=== PATIENT | female | born 1935 | race Caucasian/White ===

== ENCOUNTER → 2017-10-19 | Outpatient (REF) | payer MEDICARE ==
[2017-10-19 11:30] LABS: BASO % 0.9 % (0.0-1.0); EOS # 0.1 10^3/uL (0.0-0.50); EOS % 2.2 % (0.0-3.0); HEMATOCRIT 36.4 % (36.0-47.0); IMMATURE GRANULOCYTE % 0.6 % (0-3.0); LYMPH # 1.4 10^3/uL (1.5-4.5); LYMPH % 29.1 % (24.0-44.0); MEAN CORPUSCULAR HEMOGLOBIN 31.3 pg (27.0-33.0); MEAN CORPUSCULAR VOLUME 94.8 fl (80.0-96.0); MONO # 0.5 10^3/uL (0.0-0.8); MONO % 10.3 % (0.0-5.0); NEUTROPHILS # 2.6 10^3/uL (1.8-7.7); NEUTROPHILS % 56.9 % (36.0-66.0); PLATELET COUNT, AUTOMATED 387 10^3/uL (150-450); RED BLOOD COUNT 3.84 10^6/uL (4.00-5.40); RED CELL DISTRIBUTION WIDTH 13.4 % (11.5-14.5); WHITE BLOOD COUNT 4.6 10^3/uL (4.0-10.0)
[2017-10-19 12:03] LABS: ALBUMIN 3.3 GM/DL (3.2-5.2); ALBUMIN/GLOBULIN RATIO 1.06 (1.00-1.93); ALKALINE PHOSPHATASE 73 U/L (45-117); ALT/SGPT 25 U/L (12-78); ANION GAP 7 MEQ/L (8-16); AST/SGOT 33 U/L (7-37); BILIRUBIN,TOTAL 0.3 MG/DL (0.2-1.0); BLOOD UREA NITROGEN 16 MG/DL (7-18); CARBON DIOXIDE LEVEL 28 MEQ/L (21-32); CHLORIDE LEVEL 109 MEQ/L (98-107); CHOLESTEROL LEVEL 237 MG/DL (<200); CHOLESTEROL RISK RATIO 4.157 (<5); CREATININE FOR GFR 0.94 MG/DL (0.55-1.30); FREE T4 0.94 NG/DL (0.76-1.46); GLOMERULAR FILTRATION RATE > 60.0 (>32); GLUCOSE, FASTING 90 MG/DL (70-100); HDL CHOLESTEROL 57 MG/DL (>40); LDL CHOLESTEROL 156.4 MG/DL (<100); NON-HDL-C 180 MG/DL; POTASSIUM SERUM 4.4 MEQ/L (3.5-5.1); SODIUM LEVEL 144 MEQ/L (136-145); TOTAL PROTEIN 6.4 GM/DL (6.4-8.2); TRIGLYCERIDES LEVEL 118 MG/DL (<150)
[2017-10-19 12:17] LABS: MALB URINE SIEMENS 20.6 MG/L; MAU/CREAT RATIO 13.3 MCG/MG (0.0-30.0)
== END ==
LOC: M SFHCCLAY 08:01
DX: I10 Essential (primary) hypertension (principal)
CPT/HCPCS: 84443

== ENCOUNTER → 2018-02-05 | Outpatient (REF) | payer MEDICARE | LOC: M SFHCCLAY 17:16 | DX: R30.0 Dysuria (principal) | CPT/HCPCS: 87086 ==

== ENCOUNTER → 2018-06-08 | Outpatient (REF) | payer MEDICARE ==
[2018-06-08 17:00] LABS: HEMATOCRIT 39.2 % (36.0-47.0); HEMOGLOBIN 12.4 g/dl (12.0-15.5); MEAN CORPUSCULAR HEMOGLOBIN 31.5 pg (27.0-33.0); MEAN CORPUSCULAR HGB CONC 31.6 g/dl (32.0-36.5); MEAN CORPUSCULAR VOLUME 99.5 fl (80.0-96.0); PLATELET COUNT, AUTOMATED 207 10^3/uL (150-450); RED BLOOD COUNT 3.94 10^6/uL (4.00-5.40); RED CELL DISTRIBUTION WIDTH 13.3 % (11.5-14.5); WHITE BLOOD COUNT 4.7 10^3/uL (4.0-10.0)
[2018-06-08 17:01] LABS: ALBUMIN 3.7 GM/DL (3.2-5.2); ALBUMIN/GLOBULIN RATIO 1.37 (1.00-1.93); ALKALINE PHOSPHATASE 68 U/L (45-117); ALT/SGPT 23 U/L (12-78); ANION GAP 6 MEQ/L (8-16); AST/SGOT 20 U/L (7-37); BILIRUBIN,TOTAL 0.3 MG/DL (0.2-1.0); BLOOD UREA NITROGEN 15 MG/DL (7-18); CALCIUM LEVEL 9.1 MG/DL (8.8-10.2); CARBON DIOXIDE LEVEL 29 MEQ/L (21-32); CHLORIDE LEVEL 109 MEQ/L (98-107); CREATININE FOR GFR 0.99 MG/DL (0.55-1.30); GLOMERULAR FILTRATION RATE 56.9 (>32); GLUCOSE, FASTING 95 MG/DL (70-100); POTASSIUM SERUM 4.3 MEQ/L (3.5-5.1); SODIUM LEVEL 144 MEQ/L (136-145); TOTAL PROTEIN 6.4 GM/DL (6.4-8.2)
== END ==
LOC: M LABDRAWC 16:09
DX: C43.71 Malignant melanoma of right lower limb, including hip (principal)
CPT/HCPCS: 80053

== ENCOUNTER → 2018-06-12 | Outpatient (CLI) | payer MEDICARE | LOC: M PLARAD 15:12 | DX: C43.71 Malignant melanoma of right lower limb, including hip (principal); C77.5 Secondary and unspecified malignant neoplasm of intrapelvic lymph nodes | CPT/HCPCS: 78816 ==

== ENCOUNTER → 2018-06-14 | Outpatient (CLI) | payer MEDICARE ==
[~2018-06-14] MED LIST: PROHANCE 279.3MG/ML 5ML VIAL (A9576) As Ordered
== END ==
LOC: M RAD 09:22
DX: C43.71 Malignant melanoma of right lower limb, including hip (principal); I67.82 Cerebral ischemia
CPT/HCPCS: A9576

== ENCOUNTER → 2018-07-19 | Outpatient (REF) | payer MEDICARE ==
[2018-07-19 17:31] LABS: BASO % 0.8 % (0.0-1.0); EOS # 0.1 10^3/uL (0.0-0.50); EOS % 1.4 % (0.0-3.0); HEMATOCRIT 39.3 % (36.0-47.0); HEMOGLOBIN 12.9 g/dl (12.0-15.5); IMMATURE GRANULOCYTE % 0.2 % (0-3.0); LYMPH # 1.5 10^3/uL (1.5-4.5); LYMPH % 28.9 % (24.0-44.0); MEAN CORPUSCULAR HEMOGLOBIN 31.5 pg (27.0-33.0); MEAN CORPUSCULAR HGB CONC 32.8 g/dl (32.0-36.5); MEAN CORPUSCULAR VOLUME 96.1 fl (80.0-96.0); MONO # 0.4 10^3/uL (0.0-0.8); MONO % 7.2 % (0.0-5.0); NEUTROPHILS # 3.2 10^3/uL (1.8-7.7); NEUTROPHILS % 61.5 % (36.0-66.0); PLATELET COUNT, AUTOMATED 219 10^3/uL (150-450); RED BLOOD COUNT 4.09 10^6/uL (4.00-5.40); RED CELL DISTRIBUTION WIDTH 12.9 % (11.5-14.5); WHITE BLOOD COUNT 5.2 10^3/uL (4.0-10.0)
[2018-07-19 17:32] LABS: ALBUMIN 3.6 GM/DL (3.2-5.2); ALBUMIN/GLOBULIN RATIO 1.33 (1.00-1.93); ALKALINE PHOSPHATASE 67 U/L (45-117); ALT/SGPT 26 U/L (12-78); ANION GAP 7 MEQ/L (8-16); AST/SGOT 23 U/L (7-37); BILIRUBIN,TOTAL 0.4 MG/DL (0.2-1.0); BLOOD UREA NITROGEN 16 MG/DL (7-18); CARBON DIOXIDE LEVEL 28 MEQ/L (21-32); CHLORIDE LEVEL 109 MEQ/L (98-107); CREATININE FOR GFR 0.89 MG/DL (0.55-1.30); GLOMERULAR FILTRATION RATE > 60.0 (>32); GLUCOSE, FASTING 87 MG/DL (70-100); POTASSIUM SERUM 4.5 MEQ/L (3.5-5.1); SODIUM LEVEL 144 MEQ/L (136-145); TOTAL PROTEIN 6.3 GM/DL (6.4-8.2)
== END ==
LOC: M SFHCCLAY 09:48
DX: I10 Essential (primary) hypertension (principal)
CPT/HCPCS: 80053

== ENCOUNTER → 2018-08-01 | Outpatient (CLI) | payer MEDICARE | LOC: M CLY 11:29 | DX: R14.0 Abdominal distension (gaseous) (principal) | CPT/HCPCS: 74021 ==

== ENCOUNTER → 2018-08-01 | Outpatient (REF) | payer MEDICARE | LOC: M SFHCCLAY 11:22 | DX: N89.8 Other specified noninflammatory disorders of vagina (principal) | CPT/HCPCS: 87070; 87077; 87186 ==

== ENCOUNTER → 2018-08-02 | Outpatient (REF) | payer MEDICARE ==
[2018-08-06 00:10] LABS: H PYLORI STOOL ANTIGEN Negative (Negative)
== END ==
LOC: M SFHCCLAY 16:04
DX: R14.0 Abdominal distension (gaseous) (principal)
CPT/HCPCS: 87338

== ENCOUNTER → 2018-08-15 | Outpatient (REF) | payer MEDICARE ==
[2018-08-15 17:59] LABS: ALBUMIN 3.6 GM/DL (3.2-5.2); ALBUMIN/GLOBULIN RATIO 1.29 (1.00-1.93); ALKALINE PHOSPHATASE 68 U/L (45-117); ALT/SGPT 20 U/L (12-78); ANION GAP 9 MEQ/L (8-16); AST/SGOT 24 U/L (7-37); BILIRUBIN,TOTAL 0.4 MG/DL (0.2-1.0); BLOOD UREA NITROGEN 18 MG/DL (7-18); CALCIUM LEVEL 8.7 MG/DL (8.8-10.2); CARBON DIOXIDE LEVEL 26 MEQ/L (21-32); CHLORIDE LEVEL 107 MEQ/L (98-107); CREATININE FOR GFR 0.91 MG/DL (0.55-1.30); GLOMERULAR FILTRATION RATE > 60.0 (>32); GLUCOSE, FASTING 72 MG/DL (70-100); POTASSIUM SERUM 4.4 MEQ/L (3.5-5.1); SODIUM LEVEL 142 MEQ/L (136-145); TOTAL PROTEIN 6.4 GM/DL (6.4-8.2)
== END ==
LOC: M SFHCCLAY 13:19
DX: R14.0 Abdominal distension (gaseous) (principal)
CPT/HCPCS: 80053

== ENCOUNTER → 2018-08-22 | Outpatient (CLI) | payer MEDICARE ==
[~2018-08-22] MED LIST changes: +GASTROGRAFIN SOLUTION 30ML (Q9963) As Ordered ONE; +ISOVUE-370 76% 100ML VIAL (Q9967) As Ordered ONE; -PROHANCE 279.3MG/ML 5ML VIAL (A9576) As Ordered
--- NOTE | 2018-08-22 20:25 | REP ---
HISTORY: Abdominal bloating. COMPARISON: None. CONTRAST: 100 mL [id number] The lung bases are essentially clear. There are innumerable low density lesions scattered throughout the hepatic parenchyma, only one shows contrast enhancement and seen in a peripheral nodular fashion and with delayed imaging showing complete contrast filling of that lesion which is consistent with a benign hemangioma. It measures 1 cm. The other lesions are consistent with simple hepatic cysts. The largest is in the medial segment of the left lobe of the liver and measures 2.2 cm. The patient is status post cholecystectomy. The spleen, pancreas, adrenal glands and kidneys are within normal limits. The abdominal aorta and periaortic regions are within normal limits. The bowel loops and their mesenteries are within normal limits. There is no free fluid or free air. There is no evidence of an intraabdominal mass or adenopathy. There is a large amount of content in the colon. CT PELVIS: There is a large amount of content in the colon. There is sigmoid colon diverticulosis. There is no free fluid or free air. There is no mass or adenopathy. Bone window technique throughout the examination shows the osseous structures to be within normal limits for the patient's age of 83 years. IMPRESSION: 1. Multiple simple hepatic cysts. 2. Single benign hepatic hemangioma. 3. Content filled colon. Correlate clinically. 4. Sigmoid colon diverticulosis with some evidence to suggest chronic diverticular scarring. Consider followup with colonoscopy. 5. Other findings as described above. Electronically Signed by Jamin Sifuentes DO 08/23/2018 03:49 P
== END ==
LOC: M RAD 14:21
PROVIDERS: ATTEND Nurse Practitioner Family
DX: R14.0 Abdominal distension (gaseous) (principal); K76.89 Other specified diseases of liver
CPT/HCPCS: 74177; Q9963; Q9967

== ENCOUNTER 2018-09-26 09:19 | Day surgery (SDC) | payer MEDICARE ==
[~2018-09-26] VITALS: Ht 154.9 cm; Wt 47.6 kg
[~2018-09-26 09:19] MED LIST changes: +ALOE500C PO; +AMBI5TAB PO; +BIOT10008 PO; +COQ-400C PO; -GASTROGRAFIN SOLUTION 30ML (Q9963) As Ordered ONE; +HYDR-3713 PO; -ISOVUE-370 76% 100ML VIAL (Q9967) As Ordered ONE; +LEXA1TAB PO; +LIDOCAINE 2% INJ 100 MG/5 ML SDV (FOR ANES.) As Ordered ONE; +NS 1,000 ML IV ONE; +OCUVTAB PO; +PROPOFOL 200 MG/20 ML VIAL As Ordered ONE; +VITA100067 PO
--- NOTE | 2018-09-26 11:12 | ROOR ---
Patient Name: Tiana Posey Procedure Date: 09/26/2018 10:41 AM Date of : 1935 Age: 83 Room: [facility] Gender: Female Note Status: Finalized Procedure: Colonoscopy Indications: Abnormal CT of the GI tract Providers: DO Gillian Draper MD: Caitlin Oro NP Requesting Provider: Medicines: Propofol per Anesthesia Complications: No immediate complications. Procedure: Pre-Anesthesia Assessment: - Prior to the procedure, a History and Physical was performed, and patient medications and allergies were reviewed. The patient is competent. The risks and benefits of the procedure and the sedation options and risks were discussed with the patient. All questions were answered and informed consent was obtained. Patient identification and proposed procedure were verified by the physician, the nurse, the anesthesiologist and the textile science technician in the endoscopy suite. Mental Status Examination: alert and oriented. Airway Examination: normal oropharyngeal airway and neck mobility. Respiratory Examination: clear to auscultation. CV Examination: normal. Prophylactic Antibiotics: The patient does not require prophylactic antibiotics. Prior Anticoagulants: The patient has taken no previous anticoagulant or antiplatelet agents. ASA Grade Assessment: II - A patient with mild systemic disease. After reviewing the risks and benefits, the patient was deemed in satisfactory condition to undergo the procedure. The anesthesia plan was to use monitored anesthesia care (MAC). Immediately prior to administration of medications, the patient was re-assessed for adequacy to receive sedatives. The heart rate, respiratory rate, oxygen saturations, blood pressure, adequacy of pulmonary ventilation, and response to care were monitored throughout the procedure. The physical status of the patient was re-assessed after the procedure. The Colonoscope was introduced through the anus and advanced to the terminal ileum, with identification of the appendiceal orifice and IC valve. The colonoscopy was performed without difficulty. The patient tolerated the procedure well. Findings: The perianal exam findings include non-thrombosed internal hemorrhoids and internal hemorrhoids (Grade I). The exam was otherwise without abnormality on direct and retroflexion views. Two hyperplastic polyps were found in the descending colon. The polyps were 2 to 5 mm in size. These polyps were removed with a jumbo cold forceps. Resection and retrieval were complete. Impression: - One less than 5 mm polyp in the descending colon, removed with a jumbo cold forceps. Resected and retrieved. - Non-thrombosed internal hemorrhoids and internal hemorrhoids (Grade I) found on perianal exam. - The examination was otherwise normal on direct and retroflexion views. Recommendation: - Patient has a contact number available for emergencies. The signs and symptoms of potential delayed complications were discussed with the patient. Return to normal activities tomorrow. Written discharge instructions were provided to the patient. - Repeat colonoscopy in 5-10 years for surveillance based on pathology results. - Return to my office PRN. - Telephone my office for pathology results in 1 week. Shivam Greco DO 09/26/2018 11:12:27 AM This report has been signed electronically. Number of Addenda: 0 Note Initiated On: 09/26/2018 10:41 AM Estimated Blood Loss: Estimated blood loss: none.
[2018-09-26 11:35] VITALS: BP 150/66
== END 2018-09-26 11:38 | disposition home or self-care (01) ==
LOC: M OPP 09:19
PROVIDERS: ATTEND Surgery
DX: R93.3 Abnormal findings on diagnostic imaging of other parts of digestive tract (principal); D12.4 Benign neoplasm of descending colon; K64.0 First degree hemorrhoids; M19.90 Unspecified osteoarthritis, unspecified site; Z85.820 Personal history of malignant melanoma of skin; E78.00 Pure hypercholesterolemia, unspecified; Z78.0 Asymptomatic menopausal state; F41.9 Anxiety disorder, unspecified; Z79.899 Other long term (current) drug therapy; Z87.891 Personal history of nicotine dependence

== ENCOUNTER 2018-12-21 21:03 | Observation (INO) | payer MEDICARE ==
[~2018-12-21] VITALS: Ht 154.9 cm; Wt 54.7 kg
[~2018-12-21 21:03] MED LIST changes: -LIDOCAINE 2% INJ 100 MG/5 ML SDV (FOR ANES.) As Ordered ONE; -NS 1,000 ML IV ONE; -PROPOFOL 200 MG/20 ML VIAL As Ordered ONE
[2018-12-22] VITALS: BP 184/68
[2018-12-22] MEDS: NS 1,000 ML IV SCH ×2 (02:00→15:20)
[2018-12-22 02:30] VITALS: BP 176/64
[2018-12-22 03:30] VITALS: BP 172/66
--- NOTE | 2018-12-22 04:19 | HPEPDOC ---
General Date of Admission Dec 21, 2018 at 23:59 Primary Care Physician: Caitlin Oro Chief Complaint The patient is a 83-year-old female admitted with a reason for visit of Overdose. History of Present Illness 83-year-old female with past medical history of anxiety/depression was transferred from a local ER for admission to the hospitalist service for monitoring after an overdose. The patient apparently got into a dispute with her daughter yesterday evening. Thereafter, she states that she became increasingly depressed and took an unknown number of Ambien 5mg pills (later approximated to be 10-15 pills after a subsequent count). According to the patient's daughter, she found her mother laying on the floor the following morning and drowsy appearing. The patient stated that she was really upset about the situation from the previous night and, "wanted to end it all." The patient has been transferred to [facility] for telemetry monitoring as she was apparently noted to have a 10 second episode of bradycardia with a heart rate in the 40s while in the other facility. She remained asymptomatic and without any acute complaints during the period. Poison control has been contacted and has otherwise medically cleared the patient. At this time, the patient denies any complaints of fevers, chills, chest pain, palpitations, shortness of breath, abdominal pain, or any nausea/vomiting/diarrhea. The patient will be admitted under the service of the [facility]. She will need a psychiatric evaluation in the a.m. Home Medications Scheduled (Aloe Vera) 500 Mg Cap, Unknown Dose PO BID, (Reported) Biotin (Vitamin H) (Biotin) 1,000 Mcg Tab, 1,000 MCG PO DAILYPRN, (Reported) Escitalopram Oxalate (Lexapro) 10 Mg Tab, 10 MG PO DAILY, (Reported) Ubidecarenone (Co Q-10) 400 Mg Cap, Unknown Dose PO DAILY, (Reported) Vitamin D (Vitamin D) 1,000 Unit Cap, 1,000 UNIT PO DAILY, (Reported) Vits A,C,E/Lutein/Minerals (Ocuvite with Lutein Tablet) 1 Tab Tab, 2 TAB PO DAILY, (Reported) Scheduled PRN Hydrocodone/Acetaminophen (Hydrocodone-Acetamin 5-325 mg) 1 Tab Tab, 1 TAB PO Q6H PRN for PAIN, (Reported) MDD 4 Zolpidem Tartrate (Ambien) 5 Mg Tab, 5 MG PO QHSP PRN for SLEEP, (Reported) Allergies Coded Allergies: No Known Allergies (Unverified , 09/18/18) Past Medical History Medical History As noted in HPI. Surgical History Hysterectomy, bilateral salpingo-oophorectomy, cholecystectomy, cyst removed from breast bilaterally, right ankle surgery Social History * Smoker: Denies Alcohol: Denies Drugs: denies Review of Systems Other systems 10 point review of systems negative unless otherwise specified in HPI. Physical Examination General Exam: Positive: Alert, Cooperative, No Acute Distress ENT Exam: Positive: Atraumatic, Mucous membr. moist/pink Neck Exam: Negative: JVD Chest Exam: Positive: Clear to auscultation, Normal air movement Heart Exam: Positive: Rate Normal, Normal S1, Normal S2 Abdomen Exam: Positive: Soft; Negative: Tenderness Extremity Exam: Negative: Tenderness, Swelling Psych Exam: Positive: Oriented x 3 Vital Signs Vital Signs Date Time Temp Pulse Resp B/P (MAP) Pulse Ox O2 Delivery O2 Flow Rate FiO2 12/22/18 03:30 172/66 (101) 12/22/18 00:00 97.8 65 16 95 Plan / VTE VTE Prophylaxis Ordered?: Yes Plan Plan Overdose/Suicide Attempt Patient took 10-15 pills of Ambien 5mg on the evening of 12/20/18 Currently w/o any acute complaints Poison control has cleared the patient We will cont supportive treatment at this time Patient will need psych eval this morning Episode of Sinus Bradycardia We do not have the Telemetry stip here of the event, but apparently the patient was asymptomatic She is not on any rate controlling agents Monitor on Telemetry Hx of Depression She will need a psych eval as noted above DVT Prophylaxis LoveFREEDOM Kapadia MD Dec 22, 2018 04:19
[2018-12-22] MEDS ORDERED: D 101000 PO (04:27)
[2018-12-22] MEDS ORDERED: VITA-183 PO (04:27)
[2018-12-22] MEDS ORDERED: MECL1CHW PO (04:32)
[2018-12-22] MEDS ORDERED: MECL-86 PO (04:32)
[2018-12-22] MEDS ORDERED: DICY20TA11 PO (04:34)
[2018-12-22 06:00] VITALS: BP 155/74
[2018-12-22 06:41] LABS: HEMATOCRIT 34.6 % (36.0-47.0); HEMOGLOBIN 11.5 g/dl (12.0-15.5); MEAN CORPUSCULAR HEMOGLOBIN 31.4 pg (27.0-33.0); MEAN CORPUSCULAR HGB CONC 33.2 g/dl (32.0-36.5); MEAN CORPUSCULAR VOLUME 94.5 fl (80.0-96.0); PLATELET COUNT, AUTOMATED 168 10^3/uL (150-450); RED BLOOD COUNT 3.66 10^6/uL (4.00-5.40); WHITE BLOOD COUNT 5.4 10^3/uL (4.0-10.0)
[2018-12-22 07:24] LABS: ALBUMIN 3.1 GM/DL (3.2-5.2); ALT/SGPT 22 U/L (12-78); BILIRUBIN,TOTAL 0.4 MG/DL (0.2-1.0); BLOOD UREA NITROGEN 14 MG/DL (7-18); CALCIUM LEVEL 8.1 MG/DL (8.8-10.2); CARBON DIOXIDE LEVEL 26 MEQ/L (21-32); CHLORIDE LEVEL 113 MEQ/L (98-107); CPK CREATINE PHOSPHOKINASE 1126 U/L (26-192); CREATININE FOR GFR 0.67 MG/DL (0.55-1.30); GLOMERULAR FILTRATION RATE > 60.0 (>32); GLUCOSE, FASTING 92 MG/DL (70-100); POTASSIUM SERUM 3.6 MEQ/L (3.5-5.1); SODIUM LEVEL 145 MEQ/L (136-145); TOTAL PROTEIN 5.6 GM/DL (6.4-8.2)
[2018-12-22] MEDS: ENOXAPARIN 30 MG/0.3 ML SYR (J1650) SC SCH (09:38)
[2018-12-22 19:55] VITALS: BP 198/80
[2018-12-22] MEDS ORDERED: FUROSEMIDE 20 MG TAB PO ONE (20:30)
[2018-12-22] MEDS ORDERED: ACETAMINOPHEN TAB 650MG DOSE (2X325MG) PO PRN (21:15)
[2018-12-22 21:45] VITALS: BP 164/80
[2018-12-23 06:00] VITALS: BP 135/75
[2018-12-23 06:31] LABS: BASO % 0.6 % (0.0-1.0); EOS # 0.2 10^3/uL (0.0-0.50); EOS % 2.8 % (0.0-3.0); HEMATOCRIT 35.9 % (36.0-47.0); HEMOGLOBIN 11.8 g/dl (12.0-15.5); LYMPH # 1.6 10^3/uL (1.5-4.5); LYMPH % 29.8 % (24.0-44.0); MEAN CORPUSCULAR HEMOGLOBIN 30.8 pg (27.0-33.0); MEAN CORPUSCULAR HGB CONC 32.9 g/dl (32.0-36.5); MEAN CORPUSCULAR VOLUME 93.7 fl (80.0-96.0); MONO # 0.5 10^3/uL (0.0-0.8); MONO % 9.8 % (0.0-5.0); NEUTROPHILS # 3.1 10^3/uL (1.8-7.7); NEUTROPHILS % 56.8 % (36.0-66.0); PLATELET COUNT, AUTOMATED 186 10^3/uL (150-450); RED BLOOD COUNT 3.83 10^6/uL (4.00-5.40); WHITE BLOOD COUNT 5.4 10^3/uL (4.0-10.0)
[2018-12-23 06:49] LABS: ALBUMIN 3.3 GM/DL (3.2-5.2); ALT/SGPT 23 U/L (12-78); BILIRUBIN,TOTAL 0.5 MG/DL (0.2-1.0); BLOOD UREA NITROGEN 17 MG/DL (7-18); CALCIUM LEVEL 8.5 MG/DL (8.8-10.2); CARBON DIOXIDE LEVEL 27 MEQ/L (21-32); CHLORIDE LEVEL 109 MEQ/L (98-107); CPK CREATINE PHOSPHOKINASE 723 U/L (26-192); CREATININE FOR GFR 0.81 MG/DL (0.55-1.30); GLOMERULAR FILTRATION RATE > 60.0 (>32); GLUCOSE, FASTING 94 MG/DL (70-100); POTASSIUM SERUM 3.4 MEQ/L (3.5-5.1); SODIUM LEVEL 144 MEQ/L (136-145); TOTAL PROTEIN 5.9 GM/DL (6.4-8.2)
[2018-12-23] MEDS: ENOXAPARIN 30 MG/0.3 ML SYR (J1650) SC SCH (08:01)
--- NOTE | 2018-12-23 12:27 | IPN ---
DATE: 12/22/2018 Mrs. Posey is an 83-year-old woman admitted to our service last night. For some reason, her chart was not flagged with the fact that she is supposed to be on our service; hence, I did not see her during the day. I was called at dinnertime at home after I made rounds with the information that she was here and that her daughter was seeking some answers to some medical questions regarding her mother's condition. She went to [facility] yesterday morning. She apparently was found on the floor somewhat lethargic. She admitted to taking several doses, unclear how many, of Ambien as well as 1/2 tablet of hydrocodone with acetaminophen. At [facility], she evidenced an elevated CPK, no doubt due to some mild rhabdomyolysis. She was also observed to have had a pulse rate at one time in the 30s with a sinus bradycardia that was asymptomatic. Given the need for psychiatric assessment and cardiac monitoring, [facility] felt it best that she be transferred here and she came here last evening and was admitted by the hospitalist. She has been getting intravenous (IV) normal saline. She apparently has been reasonably awake all day. Poison Control was consulted yesterday at [facility], and they called back today and with the information they were given they felt that they no longer had to be involved. The patient herself admits to being under a certain amount of stress. She lives at home with her who apparently is not in good health at this time. He has issues with a deteriorating hip as well as some cardiac problems. She needs help from her daughter and her son-in-law in order to keep an eye on him. She says that she has felt frustrated this week regarding her life situation. [facility] also indicated to us that she had had an argument with her daughter and that could not be confirmed at this time. The patient stated yesterday to her daughter that she took the pills because she wanted to end it all. She indicates today that she is not going to do that again, and I think has been given the opportunity within the last 24 hours to express some of her worries and frustrations. At this time, she is not having any headache, no blurry vision. No cough, no shortness of breath. No chest pains or palpitations. She has been getting normal saline at 75 mL an hour, apparently she got 2-1/2 liters of IV saline before she came to our facility. She is getting Lovenox 30 mg subcu daily. At home, she was getting citalopram 10 mg daily. She periodically took Ambien for sleep 5 mg, took hydrocodone 5/325 half to one tablet periodically for low back pain. She has other medications that she does not take any more including meclizine and dicyclomine. ON EXAMINATION: Temperature at 1400 hours was 98.2, pulse was 80, respirations 18, oxygen (O2) saturation was 98% on room air. This morning, her blood pressure was 155/74, overnight it had been in the 170s and 180s. This evening, her blood pressure was 198/80. She is alert, oriented, pleasant and cooperative, not at all in any distress. She does not appear sad, withdrawn, anxious or cognitively impaired. She seems quite comfortable in the presence of her daughter. Her speech is clear. No facial weakness. No neck masses, tenderness or adenopathy. No carotid bruits. Her lungs are clear. Heart: Has a regular rhythm without any murmur, click or gallop. Abdomen is soft and nontender without any masses or organomegaly. Bowel sounds are active. There is no edema. We reviewed her labs and x-rays from [facility] this evening. This morning, her labs here showed that her hemoglobin was 11.5, WBCs 5400, platelets 168,000. Her BUN was 14, creatinine 0.67, sodium 145, potassium 3.6, glucose was 92, calcium 8.1, AST minimally elevated at 38, ALT normal at 22, alkaline phosphatase normal at 58. CPK was 1126, which is lower than the readings at [facility] yesterday. Her night monitor showed regular sinus rhythm without any bradycardia. ASSESSMENT: 83-year-old white female with Ambien overdose and modest rhabdomyolysis. Condition seems to be improving. PLAN: Since we were not aware of her presence in the hospital this morning, we lost our opportunity to discuss her case with the psychiatrist. Will do that at this time and have the psychiatrist see her tomorrow to see whether they recommend either continued hospitalization or transfer to mental health. I think that as long as she is not allowed access to psychotropic medications, she should be fine. She did sign her own Medical Orders for Life-Sustaining Treatment (MOLST) form last night. She did not want to be intubated, did not want to have feeding tube if it ever came to that. More than 45 minutes was spent with the patient and her family on the floor and reviewing records. JODY
[2018-12-23] MEDS: POTASSIUM CHLORIDE 10 MEQ SR TABLET PO SCH ×2 (13:28→20:29)
[2018-12-23 14:00] VITALS: BP 152/64
[2018-12-23 22:00] VITALS: BP 157/72
[2018-12-24 06:00] VITALS: BP 127/60
[2018-12-24] MEDS: ENOXAPARIN 30 MG/0.3 ML SYR (J1650) SC SCH (08:43)
[2018-12-24] MEDS: POTASSIUM CHLORIDE 10 MEQ SR TABLET PO SCH (08:43)
--- NOTE | 2018-12-24 08:43 | IPN ---
DATE OF VISIT: 12/23/2018 The patient is seen today on 4 pav[address]. She looks quite comfortable. She is alert and jovial. Her daughter is present as well as a friend and a sitter. She is not looking down or depressed or complaining of any suicidal ideation. She has no physical complaints. She was up a lot in the night urinating because we had given her a diuretic last night to lower blood pressure, which we felt was elevated due to the intravenous (IV) saline that she receives. She is not having any issues with her ambulation. Denies any back pain. She remains on the Lovenox. No longer on the IV fluids. We have not restarted her antidepressant medicine only because we thought perhaps that the psychiatrist might want her on a different medication other than the Lexapro that she was on. On examination, temperature is 97.3, pulse 78 regular, respirations 18, blood pressure 135/75, oxygen saturation on room air is 97%. She is alert, pleasant, cooperative, not in any distress, oriented to time place and person. She has mild assymmetry of her mouth, which is not a new finding. No neck masses or tenderness. Her lungs are clear. Heart has a regular rhythm. I am not hearing any murmur, click or gallop. Abdomen soft and nontender. There is no tremor. Facilities Coordinator are normal. Her hemoglobin is 11.8. WBC is 5400. Sodium is 144. Potassium dropped to 3.4. Liver functions are normal. CPK is down to 723. ASSESSMENT: 1. Status post Ambien overdose, seems to be resolved. 2. Rhabdomyolysis, stable. 3. Adult adjustment disorder. 4. History of depression. 5. Hypokalemia. PLAN: The patient's potassium is low today, so we will supplement her with oral potassium. I did speak with the psychiatrist with her last night and he said that he would try to see her today. If he is good with her going home, she could be discharged. If he feels that she requires some hospitalization on the mental health unit, he will indicate that as well. I suspect that they will recommend the former. JODY
[2018-12-24 11:38] LABS: BLOOD UREA NITROGEN 26 MG/DL (7-18); CARBON DIOXIDE LEVEL 25 MEQ/L (21-32); CHLORIDE LEVEL 112 MEQ/L (98-107); GLOMERULAR FILTRATION RATE > 60.0 (>32); GLUCOSE, FASTING 85 MG/DL (70-100); POTASSIUM SERUM 4.5 MEQ/L (3.5-5.1); SODIUM LEVEL 143 MEQ/L (136-145)
--- NOTE | 2018-12-24 11:58 | MHCR ---
DATE OF CONSULTATION: 12/23/2018 CHIEF COMPLAINT: She took an overdose. SUBJECTIVE: She is 83 years old. She is . She and her have been together for more than 40 years. This is her second marriage. She has two children. Both are from her first marriage, she says, and her daughter is in the area. Her son lives out of state. The patient is originally from this area, [place], and returned to live here after an absence of about 60 years about 1-1/2 years ago and looks after her , who has failing health. He uses a walker. She is the main cooperer. Says is busy looking after him and tends to do everything herself and that she finds it hard at times fairly often to ask for help, particularly when it related to him. She says she and her daughter had an argument. She says she is not sure what it was about but suggests that the daughter is "hyper" and that she likes to "control;" and these are the patient's words. The patient says she felt frustrated that day, a bit more restless, and decided to take Ambien to go to sleep. She denies that she wanted to kill herself. Says gets Ambien. Has been on it for quite awhile. Takes 5 mg at night most nights of the week and that she gets 10-mg pills, which she cuts in half. She feels she may have taken extra pills inadvertently when she wanted to take a couple of extra Ambien to help with sleep. She does not remember much after that other than going to hospital vaguely. Denies she has wanted to kill herself. Acknowledges has felt frustrated. She says she and her daughter have arguments on occasions. She says she realizes the daughter cares for her, as well. 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 Denies has been feeling depressed. Says enjoys reading, doing crossword puzzles, keeps in touch with family, sees her daughter who lives about 8 or 9 miles away daily. Says her son-in-law is also supportive, as are grandchildren. She says she does not wish to impose on them "as they have their own lives." She uses hydrocodone, as well. Takes half a pill. She has apparently been diagnosed with fibromyalgia. Says she takes it daily. Says generally found it difficult not to be busy. In fact, was working until she left [place]. Was working at a [employer] place and done that for quite awhile. No history consistent with hypomania. No history of psychosis. Says cleans a lot. Says likes things in order and meticulous. She does not think she does it obsessively. Collateral information from her daughter, Devora Sorensen, who I called on the phone ( ), with the patient's permission, indicated the patient generally has a hard time relaxing. The daughter has been concerned that the patient does a bit too much and does not ask for help even when it is offered. She said they had had an argument or a discussion and that her stepfather had found the patient quite lethargic. He called Ms. Sorensen, who went over, found her mother asleep but arousable. She also says that she sees her mother's current demeanor as reminiscent of how she was in the past when she was "clearer," per the daughter and did not appear as "foggy." Says uses the analgesic regularly. The daughter also expressed her concern regarding using these psychotropics, including the Ambien and the hydrocodone and the Lexapro and related her own experiences with that. PAST PSYCHIATRIC HISTORY: No history of suicide attempts. No inpatient psychiatric hospitalizations. Uses Lexapro given by primary care. Has been on it for several years. Has trouble with sleep. Has used Ambien for several years, as well, at 5 mg at night. FAMILY PSYCHIATRIC HISTORY: Denies any. MEDICAL HISTORY: Has a history of melanoma. Says has an appointment to have it checked. Has had surgery and skin grafting related to it within the last few years. SOCIAL HISTORY: Raised locally. 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 She graduated high school. 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 Moved to [place] at some point and then [place]. Says her first did not get along, and she got taken to court for child support matters. She says she raised the children on her own, and her second marriage has lasted many years, as well. They have been together for more than 40. Says gets along with her daughter but that they tend to have arguments. Says gets along with her , as well, though the son indicated she has been irritable with him. Denies any alcohol use as such. Says had close friends, some of whom have . Has friends in this area, as well. MENTAL STATUS EXAMINATION: She is neat. She is in hospital clothes. She is lying in bed. She is cooperative. There is no agitation. No psychomotor retardation. Speech spontaneous, goal-directed. Affect fairly broad. At times, appears mildly anxious. She denies any suicidal thoughts or intents. No homicidal ideas or intents. No evidence of any psychosis. She is able to maintain and shift attention adequately. She is alert, oriented to time, place, and person. Can spell the word house forwards and backwards. Could recall two out of three objects after 5 minutes. Intellect average. Judgment good. Insight fair. ASSESSMENT: 1. Generalized anxiety disorder. 2. Status post overdose. 3. 's health. 4. Disagreement with daughter. The patient is anxious, probably chronically so, and has been looking after her ailing . She took an overdose. Says did not want to . [place] frustrated. Wanted to sleep for awhile. Took extra Ambien, each being 10 mg. She usually breaks them in half for 5 mg at night. She did not overdose on the hydrocodone apparently. Only took one pill of it. Usually does that. The daughter interviewed on the phone with the patient's permission. She offered details. The daughter is comfortable with the patient going home and says she will keep an eye on her. Sees her at least daily. She also suggests her mother's demeanor is similar to times in the past when she was clearer in affect. The patient's sensorium is clear. She denies suicidal thoughts or intents. No evidence of any psychosis. May possibly be minimizing the effects of the frustration that she has felt and the overdose. Has generally been anxious and finds it difficult asking for help but verbalizes her greater readiness to do so. Has supports, daughter, son-in-law, grandchildren, among others. RECOMMENDATIONS: At this point, she is future-oriented, has supports, and does not appear to be in imminent danger to herself or others. I would suggest avoids Ambien if possible. If not, use very sparingly. Consider melatonin. Reassess the climate for the frequency of the hydrocodone. Suggest followup with her primary care and could be referred to see a therapist, as well. Does not at this point require inpatient psychiatric hospitalization. I suggest monitoring her medications closely when she returns home. Thank you for the consult. If you have any questions, please call. The assessment took 90 minutes.
--- NOTE | 2018-12-24 14:30 | DSES ---
DATE OF ADMISSION: 12/21/2018 DATE OF DISCHARGE: 12/24/2018 PRIMARY CARE PHYSICIAN: Caitlin Oro, nurse practitioner. ATTENDING PHYSICIAN: Dr. Yamil Solitario HISTORY OF PRESENT ILLNESS: This is an 83-year-old female who presented to [facility] emergency room secondary to an overdose of Ambien. The patient has had some increasing feelings of depression, feeling overwhelmed and excessively fatigued and felt the need for what she states is a long sleep. She took an unknown amount of Ambien 5 mg pills, her daughter approximates 10-15 pills after a count. The patient's daughter found her mother laying on the floor the morning after she took the Ambien. The patient was subsequently transferred to [facility] for monitoring as well as psychiatric consultation. HOSPITAL COURSE: The patient's hospitalization has been relatively uneventful. Telemetry has been negative. She had an elevated CPK at [facility]. A one time event of bradycardia was noted. However, she has been stable with her time here at [facility]. The patient's total creatinine kinase was elevated on presentation on 12/22/2018 of 1126. She is down to 723 today. Electrolytes showed some mild hypokalemia. She received potassium supplementation yesterday. The patient is status post psychiatric consult. The patient is deemed safe to proceed home with assistance from patient's daughter as well as her . Outpatient psychiatry and counseling was recommended. The patient's daughter states she has noticed improved mental clarity since patient has been without any of her standard medications at home. The patient's daughter felt both the Ambien as well as the Lexapro contributed to the patient's confusion on an outpatient basis. PHYSICAL EXAMINATION: Vital signs are stable. She is afebrile. HEENT: Neck is supple, without lymphadenopathy or jugular venous distention (JVD). Cardiovascular: Heart rate and rhythm are regular. Pulmonary: Lungs clear to auscultation bilaterally. Abdomen is soft and nontender with positive bowel sounds times all four quadrants. Neurologic: Patient is alert and oriented times three. Psych: Patient maintains eye contact. Conversation is appropriate and congruent. Affect is flat. The patient is tearful when discussing her Ambien use and adamantly denies any suicidal thoughts or thoughts of harming others. ASSESSMENT: 1. Depression. 2. Ambien overdose. 3. Hypokalemia. PLAN: The patient will be discharged to home. She will followup with myself within the next 5-7 days. She and her daughter contract for safety. Medications have been removed from the home and the 's controlled medications are in a controlled environment that patient will not have access to. She is agreeable to following up with psychiatry as an outpatient and we will arrange that when she follows up with me next week. DIET: As tolerated. ACTIVITY: As tolerated. MEDICATIONS: - vitamin D3 1000 international units by mouth daily - dicyclomine 20 mg by mouth four times a day - meclizine 25 mg by mouth three times a day as needed dizziness - Ocuvite with Lutein tablet two by mouth daily MEDICATIONS HELD: - Lexapro 10 mg daily - hydrocodone - Ambien The patient and daughter verbalized understanding and agreement with plan.
== END 2018-12-24 12:45 | disposition home or self-care (01) ==
LOC: INTOOBSV 23:59 → M MSPAV 23:59
PROVIDERS: ADMIT Internal Medicine; ATTEND Internal Medicine
DX: T42.4X2A Poisoning by benzodiazepines, intentional self-harm, initial encounter (principal); F32.9 Major depressive disorder, single episode, unspecified; F41.9 Anxiety disorder, unspecified; E87.6 Hypokalemia; M79.7 Fibromyalgia; Z79.899 Other long term (current) drug therapy
CPT/HCPCS: 36415; 80048; 80053; 82550; 85025; 85027; 96372; G0378; J1650

== ENCOUNTER → 2019-07-08 | Outpatient (REF) | payer MEDICARE ==
[~2019-07-08] MED LIST changes: +D 101000 PO; +DICY20TA11 PO; +MECL-86 PO; +MECL1CHW PO; +VITA-183 PO
[2019-07-08 12:29] LABS: HEMATOCRIT 41.1 % (36.0-47.0); HEMOGLOBIN 12.8 g/dl (12.0-15.5); MEAN CORPUSCULAR HEMOGLOBIN 30.5 pg (27.0-33.0); MEAN CORPUSCULAR HGB CONC 31.1 g/dl (32.0-36.5); MEAN CORPUSCULAR VOLUME 97.9 fl (80.0-96.0); PLATELET COUNT, AUTOMATED 218 10^3/uL (150-450)
[2019-07-08 12:36] LABS: ALBUMIN 3.7 GM/DL (3.2-5.2); BILIRUBIN,TOTAL 0.5 MG/DL (0.2-1.0); CALCIUM LEVEL 9.3 MG/DL (8.8-10.2); CREATININE FOR GFR 1.03 MG/DL (0.55-1.30); GLOMERULAR FILTRATION RATE 54.2 (>32); POTASSIUM SERUM 4.6 MEQ/L (3.5-5.1); TOTAL PROTEIN 6.7 GM/DL (6.4-8.2)
== END ==
LOC: M LABDRAWC 08:49
PROVIDERS: ATTEND Internal Medicine Hematology & Oncology
DX: C43.71 Malignant melanoma of right lower limb, including hip (principal)

== ENCOUNTER → 2019-09-23 | Outpatient (REF) | payer MEDICARE ==
[2019-09-23 16:27] LABS: BASO # 0.1 10^3/uL (0.0-0.2); EOS # 0.1 10^3/uL (0.0-0.5); EOS % 2.2 % (0.0-3.0); HEMATOCRIT 38.3 % (36.0-47.0); HEMOGLOBIN 11.9 g/dl (12.0-15.5); LYMPH # 1.3 10^3/uL (1.5-5.0); LYMPH % 26.8 % (24.0-44.0); MEAN CORPUSCULAR HEMOGLOBIN 30.4 pg (27.0-33.0); MEAN CORPUSCULAR HGB CONC 31.1 g/dl (32.0-36.5); MEAN CORPUSCULAR VOLUME 97.7 fl (80.0-96.0); MONO # 0.4 10^3/uL (0.0-0.8); MONO % 8.5 % (0.0-5.0); NEUTROPHILS # 3.1 10^3/uL (1.5-8.5); NEUTROPHILS % 61.3 % (36.0-66.0); PLATELET COUNT, AUTOMATED 176 10^3/uL (150-450); RED BLOOD COUNT 3.92 10^6/uL (4.00-5.40)
[2019-09-23 17:07] LABS: ALBUMIN 3.9 GM/DL (3.2-5.2); BILIRUBIN,TOTAL 0.5 MG/DL (0.2-1.0); CALCIUM LEVEL 8.8 MG/DL (8.8-10.2); CREATININE FOR GFR 1.09 MG/DL (0.55-1.30); FREE T4 0.87 NG/DL (0.76-1.46); GLOMERULAR FILTRATION RATE 50.8 (>32); POTASSIUM SERUM 4.5 MEQ/L (3.5-5.1); THYROID STIMULATING HORMONE 2.46 uIU/ML (0.358-3.740); TOTAL PROTEIN 6.5 GM/DL (6.4-8.2)
== END ==
LOC: M SFHCCAPE 10:48
PROVIDERS: ATTEND Nurse Practitioner Family
DX: R55 Syncope and collapse (principal); Z79.899 Other long term (current) drug therapy

== ENCOUNTER → 2019-10-01 | Outpatient (CLI) | payer MEDICARE ==
--- NOTE | 2019-10-01 09:25 | REP ---
Bilateral carotid artery duplex ultrasound: Peak flow velocity analysis: RIGHT LEFT ICA Peak flow velocity cm/sec 203 153 ICA Diastolic flow velocity cm/sec 41.7 38.1 ICA/CCA Ratio 2.4 1.6 ECA Peak flow velocity cm/sec 118 77.7 CCA Peak flow velocity cm/sec 85.7 97.7 The internal carotid arteries and external carotid arteries are tortuous bilaterally. No visible atheromatous plaque is identified on the right or the left. However, the internal carotid artery peak flow velocity is moderately elevated bilaterally. This may be secondary to vessel tortuosity. There is antegrade flow in the vertebral arteries bilaterally. Electronically Signed by Shivam Carolina MD 10/01/2019 09:17 A
--- NOTE | 2019-10-01 13:52 | REP ---
Renal ultrasound: The right kidney measures 8.7 x 4.7 x 4.2 cm. The left kidney measures 8.7 x 4.1 x 5.2 cm. The kidneys are atrophic size. Renal cortical echogenicity is normal bilaterally. There is no hydronephrosis. There are no renal calculi. There are no solid or cystic renal masses. Bladder: The bladder is empty and cannot be evaluated. Impression: Atrophic kidneys, otherwise negative renal ultrasound. Renal Vascular Doppler Ultrasound: Right Kidney: Renal length 8.7 cm. Extraparenchymal renal artery. Peak renal artery flow velocity the 109 cm/ sec Peak aortic velocity: No 80.8 cm/sec Renal/aortic ratio: 1.2 Intraparenchymal renal arteries. Resistive index: upper pole 0.86 mid pole 0.82 lower pole 0.84 Acceleration time: upper pole 0.04 mid pole 0.06 lower pole 0.04 Left kidney: Renal length 8.7 cm. Extraparenchymal renal artery: Peak renal artery flow velocity: 97.1 cm/sec. Peak aortic velocity: 90.8 cm/sec Renal/aortic ratio: 0.87 Intraparenchymal renal arteries: Resistive index: Upper pole 0.7 mid pole 0.83 lower pole 0.82 Acceleration time: Upper pole 0.04 mid pole 0.04 lower pole 0.05 Impression: There is no ultrasound evidence of renal artery stenosis. Both kidneys are atrophic size. The intrarenal parenchymal artery resistive indices are elevated bilaterally, possibly from chronic renal disease. Electronically Signed by Shivam Carolina MD 10/01/2019 01:44 P
== END ==
LOC: M RAD 07:01
PROVIDERS: ATTEND Nurse Practitioner Family
DX: I10 Essential (primary) hypertension (principal); R55 Syncope and collapse

== ENCOUNTER → 2020-10-12 | Outpatient (CLI) | payer SELFPAY | LOC: M LABSMTC 09:48 | PROVIDERS: ATTEND Pediatrics | DX: Z20.822 Contact with and (suspected) exposure to COVID-19 (principal) ==

== ENCOUNTER → 2020-10-16 | Outpatient (CLI) | payer SELFPAY | LOC: M LABSMTC 11:40 | PROVIDERS: ATTEND Pediatrics | DX: Z20.822 Contact with and (suspected) exposure to COVID-19 (principal) ==

== ENCOUNTER → 2021-01-11 | Outpatient (CLI) | payer MEDICARE ==
--- NOTE | 2021-01-11 13:50 | REP ---
INDICATION: M79.641, RIGHT HAND PAIN. COMPARISON: None. TECHNIQUE: Four views FINDINGS: There is asymmetric intra digital joint space narrowing throughout the digits without prominent marginal osteophytosis, marginal erosions, or brittani periarticular osteopenia. There is subtle medial subluxation of the DIP joint of the 2nd digit. IMPRESSION: Chronic changes as described above. <Electronically signed by Jamin Sifuentes > 01/11/21 [id number]
--- NOTE | 2021-01-11 13:51 | REP ---
INDICATION: M25.531, RIGHT WRIST PAIN. COMPARISON: None TECHNIQUE: Four views FINDINGS: [id number] degenerative changes seen throughout the wrist particularly affecting the 1st carpometacarpal joint with there is asymmetric narrowing, slight osteophytosis, and subchondral sclerosis. IMPRESSION: Chronic changes as described above. <Electronically signed by Jamin Sifuentes > 01/11/21 [id number]
== END ==
LOC: M CLY 13:18
PROVIDERS: ATTEND Nurse Practitioner Family
DX: M19.031 Primary osteoarthritis, right wrist (principal); M19.041 Primary osteoarthritis, right hand; M79.641 Pain in right hand; M25.531 Pain in right wrist

== ENCOUNTER → 2021-12-23 | Outpatient (REF) | payer MEDICARE ==
[~2021-12-23] MED LIST changes: -DICY20TA11 PO; +DICY20TA20 PO
[2021-12-23 15:51] LABS: BASO # 0.1 10^3/uL (0.0-0.2); EOS # 0.1 10^3/uL (0.0-0.5); EOS % 1.4 % (0.0-3.0); HEMATOCRIT 39.7 % (36.0-47.0); HEMOGLOBIN 13.1 g/dl (12.0-15.5); LYMPH # 1.4 10^3/uL (1.5-5.0); LYMPH % 28.1 % (24.0-44.0); MEAN CORPUSCULAR HEMOGLOBIN 32.2 pg (27.0-33.0); MEAN CORPUSCULAR VOLUME 97.5 fl (80.0-96.0); MONO # 0.5 10^3/uL (0.0-0.8); MONO % 9.6 % (2.0-8.0); NEUTROPHILS % 59.7 % (36.0-66.0); PLATELET COUNT, AUTOMATED 200 10^3/uL (150-450); RED BLOOD COUNT 4.07 10^6/uL (4.00-5.40); WHITE BLOOD COUNT 5.1 10^3/uL (4.0-10.0)
[2021-12-23 16:31] LABS: ALBUMIN 3.9 GM/DL (3.2-5.2); BILIRUBIN,TOTAL 0.4 MG/DL (0.2-1.0); CALCIUM LEVEL 9.2 MG/DL (8.8-10.2); CREATININE FOR GFR 0.94 MG/DL (0.55-1.30); FREE T4 0.79 NG/DL (0.76-1.46); POTASSIUM SERUM 4.9 MEQ/L (3.5-5.1); THYROID STIMULATING HORMONE 1.72 uIU/ML (0.358-3.740); TOTAL PROTEIN 6.6 GM/DL (6.4-8.2)
== END ==
LOC: M SFHCCLAY 11:32
PROVIDERS: ATTEND Nurse Practitioner Family
DX: I10 Essential (primary) hypertension (principal); F41.1 Generalized anxiety disorder

== ENCOUNTER → 2022-02-17 | Outpatient (REF) | payer MEDICARE | LOC: M SFHCCLAY 15:40 | PROVIDERS: ATTEND Nurse Practitioner Family | DX: R30.0 Dysuria (principal) ==

== ENCOUNTER → 2022-06-29 | Outpatient (REF) | payer MEDICARE ==
[2022-06-29 17:29] LABS: BASO % 0.8 % (0.0-1.0); EOS # 0.1 10^3/uL (0.0-0.5); EOS % 1.8 % (0.0-3.0); HEMATOCRIT 37.4 % (36.0-47.0); HEMOGLOBIN 12.2 g/dl (12.0-15.5); LYMPH # 1.4 10^3/uL (1.5-5.0); LYMPH % 27.6 % (24.0-44.0); MEAN CORPUSCULAR HEMOGLOBIN 31.5 pg (27.0-33.0); MEAN CORPUSCULAR HGB CONC 32.6 g/dl (32.0-36.5); MEAN CORPUSCULAR VOLUME 96.6 fl (80.0-96.0); MONO # 0.4 10^3/uL (0.0-0.8); MONO % 8.4 % (2.0-8.0); NEUTROPHILS # 3.1 10^3/uL (1.5-8.5); NEUTROPHILS % 61.2 % (36.0-66.0); PLATELET COUNT, AUTOMATED 226 10^3/uL (150-450); RED BLOOD COUNT 3.87 10^6/uL (4.00-5.40); WHITE BLOOD COUNT 5.1 10^3/uL (4.0-10.0)
[2022-06-29 19:46] LABS: ALBUMIN 3.7 GM/DL (3.2-5.2); BILIRUBIN,TOTAL 0.6 MG/DL (0.2-1.0); CALCIUM LEVEL 8.9 MG/DL (8.8-10.2); CREATININE FOR GFR 1.1 MG/DL (0.55-1.30); FREE T4 0.8 NG/DL (0.76-1.46); GLOMERULAR FILTRATION RATE 49.9 (>32); POTASSIUM SERUM 4.8 MEQ/L (3.5-5.1); THYROID STIMULATING HORMONE 1.63 uIU/ML (0.358-3.740); TOTAL PROTEIN 6.6 GM/DL (6.4-8.2)
== END ==
LOC: M SFHCCLAY 11:27
PROVIDERS: ATTEND Nurse Practitioner Family
DX: I10 Essential (primary) hypertension (principal); F41.1 Generalized anxiety disorder

== ENCOUNTER → 2022-07-11 | Outpatient (REF) | payer MEDICARE | LOC: M SFHCDERM 17:30 | PROVIDERS: ATTEND Physician Assistant | DX: L82.1 Other seborrheic keratosis (principal) ==

== ENCOUNTER → 2023-03-29 | Outpatient (REF) | payer MEDICARE | LOC: M SFHCCAPE 16:55 | PROVIDERS: ATTEND Nurse Practitioner Family | DX: R35.0 Frequency of micturition (principal) ==

== ENCOUNTER → 2023-04-24 | Outpatient (REF) | payer MEDICARE | LOC: M SFHCCLAY 11:13 | PROVIDERS: ATTEND Physician Assistant | DX: R05.1 Acute cough (principal) ==

== ENCOUNTER → 2023-06-29 | Outpatient (REF) | payer MEDICARE ==
[2023-06-29 18:39] LABS: BASO % 0.5 % (0.0-1.0); EOS # 0.1 10^3/uL (0.0-0.5); EOS % 1.7 % (0.0-3.0); HEMATOCRIT 36.6 % (36.0-47.0); HEMOGLOBIN 11.8 g/dl (12.0-15.5); LYMPH # 1.4 10^3/uL (1.5-5.0); LYMPH % 24.3 % (24.0-44.0); MEAN CORPUSCULAR HEMOGLOBIN 31.1 pg (27.0-33.0); MEAN CORPUSCULAR HGB CONC 32.2 g/dl (32.0-36.5); MEAN CORPUSCULAR VOLUME 96.6 fl (80.0-96.0); MONO # 0.5 10^3/uL (0.0-0.8); MONO % 8.8 % (2.0-8.0); NEUTROPHILS # 3.7 10^3/uL (1.5-8.5); NEUTROPHILS % 64.4 % (36.0-66.0); PLATELET COUNT, AUTOMATED 226 10^3/uL (150-450); RED BLOOD COUNT 3.79 10^6/uL (4.00-5.40); WHITE BLOOD COUNT 5.8 10^3/uL (4.0-10.0)
[2023-06-29 18:45] LABS: CREATININE, URINE 143.3 MG/DL
[2023-06-29 18:46] LABS: MAU/CREAT RATIO 7.6 MCG/MG (0.0-30.0)
[2023-06-29 18:50] LABS: ALBUMIN 3.8 G/DL (3.2-5.2); ALKALINE PHOSPHATASE 83 U/L (46-116); ALT/SGPT 21 U/L (7.0-40); AST/SGOT 21 U/L (<34); BILIRUBIN,TOTAL 0.7 MG/DL (0.3-1.2); BLOOD UREA NITROGEN 26 MG/DL (9-23); CALCIUM LEVEL 9.2 MG/DL (8.3-10.6); CARBON DIOXIDE LEVEL 26 MMOL/L (20-31); CHLORIDE LEVEL 105 MMOL/L (98-107); CHOLESTEROL LEVEL 323 MG/DL (<200); CREATININE FOR GFR 0.87 MG/DL (0.55-1.30); GLOMERULAR FILTRATION RATE > 60.0 (>32); GLUCOSE, FASTING 86 MG/DL (74-106); HDL CHOLESTEROL 50.4 MG/DL (>40); LDL CHOLESTEROL 225.4 MG/DL (<100); NON-HDL-C 272.6 MG/DL; POTASSIUM SERUM 4.5 MMOL/L (3.5-5.1); SODIUM LEVEL 140 MMOL/L (136-145); TOTAL PROTEIN 6.3 G/DL (5.7-8.2); TRIGLYCERIDES LEVEL 236 MG/DL (<150)
[2023-06-29 18:55] LABS: FREE T4 0.87 NG/DL (0.89-1.76)
== END ==
LOC: M SFHCCLAY 11:29
PROVIDERS: ATTEND Nurse Practitioner Family
DX: I10 Essential (primary) hypertension (principal); F41.1 Generalized anxiety disorder

== ENCOUNTER → 2023-12-18 | Outpatient (REF) | payer OTHER ==
[2023-12-18 17:56] LABS: ALBUMIN 3.5 G/DL (3.2-5.2); BASO % 0.8 % (0.0-1.0); BILIRUBIN,TOTAL 0.4 MG/DL (0.3-1.2); CREATININE FOR GFR 1.07 MG/DL (0.55-1.30); EOS # 0.1 10^3/uL (0.0-0.5); EOS % 1.6 % (0.0-3.0); GLOMERULAR FILTRATION RATE 51.4 (>32); HEMATOCRIT 37.3 % (36.0-47.0); HEMOGLOBIN 12.2 g/dl (12.0-15.5); LYMPH # 1.5 10^3/uL (1.5-5.0); LYMPH % 30.6 % (24.0-44.0); MEAN CORPUSCULAR HEMOGLOBIN 31.2 pg (27.0-33.0); MEAN CORPUSCULAR HGB CONC 32.7 g/dl (32.0-36.5); MEAN CORPUSCULAR VOLUME 95.4 fl (80.0-96.0); MONO # 0.5 10^3/uL (0.0-0.8); MONO % 9.3 % (2.0-8.0); NEUTROPHILS # 2.9 10^3/uL (1.5-8.5); NEUTROPHILS % 57.3 % (36.0-66.0); PLATELET COUNT, AUTOMATED 219 10^3/uL (150-450); POTASSIUM SERUM 4.4 MMOL/L (3.5-5.1); RED BLOOD COUNT 3.91 10^6/uL (4.00-5.40); TOTAL PROTEIN 6.2 G/DL (5.7-8.2)
== END ==
LOC: M SFHCCLAY 11:17
PROVIDERS: ATTEND Nurse Practitioner Family
DX: Z00.00 Encounter for general adult medical examination without abnormal findings (principal); I10 Essential (primary) hypertension; F41.1 Generalized anxiety disorder

== ENCOUNTER → 2024-02-07 | Outpatient (CLI) | payer OTHER | LOC: M CLY 13:33 | PROVIDERS: ATTEND Family Medicine | DX: R05.1 Acute cough (principal) ==